=== PATIENT | male | born 1960 | race Caucasian/White ===

== ENCOUNTER → 2016-09-27 | Outpatient (CLI) | payer BC ==
[~2016-09-27] MED LIST: IBUP-103 PO; MECL1TAB42 PO
== END | disposition home or self-care (01) ==
LOC: C.RDSM 13:47
PROVIDERS: ATTEND Orthopaedic Surgery Sports Medicine
DX: R52 Pain, unspecified (principal)

== ENCOUNTER → 2016-11-15 | Outpatient (CLI) | payer BC | END | disposition home or self-care (01) | LOC: C.RDSM 14:20 | PROVIDERS: ATTEND Orthopaedic Surgery Sports Medicine | DX: M25.562 Pain in left knee (principal) ==

== ENCOUNTER 2017-01-18 11:49 | Emergency (ER) | payer BC ==
[~2017-01-18] VITALS: Ht 172.7 cm; Wt 80.7 kg
[~2017-01-18 11:49] MED LIST changes: -MECL1TAB42 PO
[2017-01-18 11:58] VITALS: TEMP 36.6; Ht 172.7 cm; Wt 80.7 kg
[2017-01-18] MEDS ORDERED: MECLIZINE HCL 25 MG TAB PO STA (13:29)
[2017-01-18] MEDS ORDERED: SODIUM CHLORIDE 0.9% 1000ML 1,000 ML IV STA (13:29)
--- NOTE | 2017-01-18 13:41 | EMERGENCY ROOM VISIT NOTE ---
History First contact with patient: 13:18 Chief Complaint: SHORTNESS OF BREATH Stated Complaint: SOB, DIZZY History of Present Illness The patient is a 56 year old male who presents to the Emergency Room with complaints of dizziness. The patient was at work this morning when he describes the sensation of dizziness and the room spinning. He tried sitting down, left work to go home, and tried hydrating but at no point did the symptoms resolve. The patient called his family doctor who recommended that the patient come to the Emergency Department. He states the he has also felt fatigued over the last 2 weeks and recently returned from a trip to [place]. The patient currently states that most of his symptoms have currently resolved, but also appreciates that his dizziness recurs when bending over. The patient also states that he was having some chest tightness with the episodes. The patient states that during the episode he was also short of breath but denies any headache, vision changes, recent rashes, or any other acute symptoms. Review of Systems See HPI for pertinent positives and negatives. A total of ten systems were reviewed and were otherwise negative. Past Medical/Surgical History Medical Problems: (1) Syncope Family History FH: heart disease FATHER Social History Smoking Status: Never Smoker Marital Status: Housing Status: lives with family Occupation Status: employed Current/Historical Medications Scheduled PRN Ibuprofen Tab (Advil), 400 MG PO for Pain Allergies Coded Allergies: No Known Allergies (Verified , 01/18/17) Physical Exam Vital Signs Date Time Temp Pulse Resp B/P (MAP) Pulse Ox O2 Delivery O2 Flow Rate FiO2 01/18/17 15:08 61 18 107/71 100 Room Air 01/18/17 13:40 77 108/70 82 118/79 85 104/75 01/18/17 12:00 98 Room Air 01/18/17 11:58 36.6 78 20 123/84 98 Room Air Physical Exam GENERAL: Awake, alert, well-appearing, in no distress HENT: Normocephalic, atraumatic. Oropharynx unremarkable. EYES: Normal conjunctiva. Sclera non-icteric. NECK: Supple. No nuchal rigidity. FROM. No JVD. RESPIRATORY: Clear to auscultation. CARDIAC: Regular rate, normal rhythm. Extremities warm and well perfused. Pulses equal. ABDOMEN: Soft, non-distended. No tenderness to palpation. RECTAL: Deferred. MUSCULOSKELETAL: Chest examination reveals no tenderness. The back is symmetrical on inspection without obvious abnormality. LOWER EXTREMITIES: Calves are equal size bilaterally and non-tender. No edema. No discoloration. NEURO: Normal sensorium. No sensory or motor deficits noted. CN 2-12 grossly intact. Strength 5/5 in upper extremities bilaterally. Heel to hernandez bilaterally intact. SKIN: No rash or jaundice noted. Medical Decision & Procedures Laboratory Results 01/18/17 14:12 Red Blood Count 4.98, Mean Corpuscular Volume 87.3, Mean Corpuscular Hemoglobin 31.9, Mean Corpuscular Hemoglobin Concent 36.6, Mean Platelet Volume 9.7, Neutrophils (%) (Auto) 67.3, Lymphocytes (%) (Auto) 20.7, Monocytes (%) (Auto) 9.8, Eosinophils (%) (Auto) 1.7, Basophils (%) (Auto) 0.2, Neutrophils # (Auto) 4.07, Lymphocytes # (Auto) 1.25, Monocytes # (Auto) 0.59, Eosinophils # (Auto) 0.10, Basophils # (Auto) 0.01 01/18/17 14:12 Test 01/18/17 14:12 White Blood Count 6.04 K/uL (4.8-10.8) Red Blood Count 4.98 M/uL (4.7-6.1) Hemoglobin 15.9 g/dL (14.0-18.0) Hematocrit 43.5 % (42-52) Mean Corpuscular Volume 87.3 fL (80-100) Mean Corpuscular Hemoglobin 31.9 pg (25-34) Mean Corpuscular Hemoglobin Concent 36.6 g/dl (32-36) Platelet Count 198 K/uL (130-400) Mean Platelet Volume 9.7 fL (7.4-10.4) Neutrophils (%) (Auto) 67.3 % Lymphocytes (%) (Auto) 20.7 % Monocytes (%) (Auto) 9.8 % Eosinophils (%) (Auto) 1.7 % Basophils (%) (Auto) 0.2 % Neutrophils # (Auto) 4.07 K/uL (1.4-6.5) Lymphocytes # (Auto) 1.25 K/uL (1.2-3.4) Monocytes # (Auto) 0.59 K/uL (0.11-0.59) Eosinophils # (Auto) 0.10 K/uL (0-0.5) Basophils # (Auto) 0.01 K/uL (0-0.2) RDW Standard Deviation 39.5 fL (36.4-46.3) RDW Coefficient of Variation 12.4 % (11.5-14.5) Immature Granulocyte % (Auto) 0.3 % Immature Granulocyte # (Auto) 0.02 K/uL (0.00-0.02) Anion Gap 5.0 mmol/L (3-11) Est Creatinine Clear Calc Drug Dose 74.3 ml/min Estimated GFR () 87.7 Estimated GFR (Non- 75.7 BUN/Creatinine Ratio 13.5 (10-20) Calcium Level 9.1 mg/dl (8.5-10.1) Troponin I < 0.015 ng/ml (0-0.045) Lyme Disease IgG Antibody NEG (NEG) Lyme Disease IgM Antibody NEG (NEG) Medications Administered Medications (Trade) Dose Ordered Sig/Maricruz Route Start Time Stop Time Status Last Admin Dose Admin Sodium Chloride 1,000 ml @ 999 mls/hr Q1H1M STAT IV 01/18/17 13:29 01/18/17 14:29 DC 01/18/17 14:18 999 MLS/HR Meclizine HCl (Antivert Tab) 25 mg NOW STAT PO 01/18/17 13:29 01/18/17 13:31 DC 01/18/17 14:19 25 MG Medical Decision Patient is a 56 year old female the presents with acute dizziness Etiologies such as benign positional vertigo, tumor, infection, hypoglycemia, electrolyte abnormalities, cardiac sources, intracerebral event, toxicologic, neurologic, as well as others were entertained. Labs: CBC, BMP, Troponin Orthostatic Vitals EKG, Chest X-ray Medications: Meclizine 25mg 1L NS Impression Primary Impression: Vaso vagal episode Patient is a 56 year old male that presents to the ED with dizziness - CBC, BMP, Troponin, EKG, Chest X-Ray all within normal limits - Patient symptoms appear to have resolved after arrival to the ED - Orthostatic vital do not appear to be significant - Symptoms and normal labs most likely signify vaso-vagal event - Patient to be discharged home Departure Information Dispostion Home / Self-Care Condition GOOD Prescriptions Meclizine Hcl (MECLIZINE HCL) 25 Mg Tab 1 TAB PO TID Y for Dizziness or Vertigo for 10 Days, #30 TAB Prov: Homer Ambrose MD 01/18/17 Referrals He Ji M.D.([facility]) (PCP) Patient Instructions My [facility] Additional Instructions DO NOT drive, drink alcohol, operate machinery, or perform dangerous activities today. You were given medications in the ER that can affect your ability to safely function or operate a vehicle. You should not drive or perform any dangerous activities until your symptoms resolve. Meclizine 25mg: Take 1 pill every 8 hours as needed for dizziness or vertigo. Avoid alcohol, operating machinery or dangerous equipment, working on ladders or roofs, DRIVING, or situations where being under the influence may be dangerous Rest and drink plenty of fluids as tolerated. Return to the ER immediately for worsening or persistent dizziness, vomiting, headache, fevers, chest pains, difficulty breathing, black or bloody stools, slurred speech, numbness, weakness, visual changes, worsening of your condition , or as needed. Follow up with your primary physician in 2-3 days for a recheck of your current condition.
--- NOTE | 2017-01-18 14:07 | EMERGENCY ROOM VISIT NOTE ---
History Report prepared by Lakhwinder: Alan Reed Under the Supervision of: Dr. Evangelist Laguna M.D. First contact with patient: 13:18 Chief Complaint: SHORTNESS OF BREATH Stated Complaint: SOB, DIZZY History of Present Illness The patient is a 56 year old male who presents to the Emergency Room with complaints of improving dizziness starting earlier today. The patient states that he was painting the interior of the house, so he sat down, and it did not go away. He states that he then went home, had water, and sat down, and it still did not go away. He called his PCP to come in for evaluation. He states that he is not currently dizzy unless he is bent over. He states that he was short of breath, though not anymore. The patient states that he has a history of panic attacks, and this situation felt similar. He states that he has a family history of heart disease with his father who had a quadruple bypass surgery and congestive heart failure. The patient states that he has had a stress test within the last five years and he passed. Additionally, the patient states that he has been fatigued recently, and he recently had a long drive. Source of History: patient Onset: earlier today Position: other (global) Quality: other (dizziness) Timing: other (improving) Modifying Factors (Worsening): other (bending over) Associated Symptoms: + SOB Review of Systems See HPI for pertinent positives & negatives. A total of 10 systems reviewed and were otherwise negative. Past Medical & Surgical Medical Problems: (1) Syncope Family History FH: heart disease FATHER Social History Smoking Status: Never Smoker Marital Status: Housing Status: lives with family Occupation Status: employed Current/Historical Medications Scheduled PRN Ibuprofen Tab (Advil), 400 MG PO for Pain Meclizine Hcl (Meclizine Hcl), 1 TAB PO TID PRN for Dizziness or Vertigo Allergies Coded Allergies: No Known Allergies (Verified , 01/18/17) Physical Exam Vital Signs Date Time Temp Pulse Resp B/P (MAP) Pulse Ox O2 Delivery O2 Flow Rate FiO2 01/18/17 15:08 61 18 107/71 100 Room Air 01/18/17 13:40 77 108/70 82 118/79 85 104/75 01/18/17 12:00 98 Room Air 01/18/17 11:58 36.6 78 20 123/84 98 Room Air Physical Exam GENERAL: Patient is a healthy-appearing well-nourished male HEAD: Normocephalic atraumatic EYES: Ocular movements intact pupils equal and react to light OROPHARYNX mucous membranes are moist no exudates present no erythema or edema present NECK: Supple no nuchal rigidity CHEST: Good equal expansion LUNGS: Clear and equal to auscultation CARDIAC: Normal S1 and S2 ABDOMEN: Soft nontender no guarding BACK: No CVA tenderness EXTREMITIES: No pain upon palpation normal muscle strength in all groups no clubbing cyanosis or edema NEURO: Patient is following commands and answering questions appropriately. Alert and oriented x3 Cranial Nerves 2-12 grossly intact Medical Decision & Procedures ER Provider Diagnostic Interpretation: X-ray results as stated below per interpretation by me and the radiologist: CHEST ONE VIEW PORTABLE CLINICAL HISTORY: Pt c/o sob dyspnea 11/19/2013 COMPARISON STUDY: No previous studies for comparison. FINDINGS: The bones soft tissues and hemidiaphragms are normal. The cardiomediastinal silhouette is normal. The lungs are clear. The pulmonary vasculature is normal. IMPRESSION: Negative chest. Electronically signed by: Ramiro Rios M.D. 01/18/2017 2:50 PM Dictated Date/Time: 01/18/2017 2:50 PM Laboratory Results 01/18/17 14:12 Red Blood Count 4.98, Mean Corpuscular Volume 87.3, Mean Corpuscular Hemoglobin 31.9, Mean Corpuscular Hemoglobin Concent 36.6, Mean Platelet Volume 9.7, Neutrophils (%) (Auto) 67.3, Lymphocytes (%) (Auto) 20.7, Monocytes (%) (Auto) 9.8, Eosinophils (%) (Auto) 1.7, Basophils (%) (Auto) 0.2, Neutrophils # (Auto) 4.07, Lymphocytes # (Auto) 1.25, Monocytes # (Auto) 0.59, Eosinophils # (Auto) 0.10, Basophils # (Auto) 0.01 01/18/17 14:12 Test 01/18/17 14:12 White Blood Count 6.04 K/uL (4.8-10.8) Red Blood Count 4.98 M/uL (4.7-6.1) Hemoglobin 15.9 g/dL (14.0-18.0) Hematocrit 43.5 % (42-52) Mean Corpuscular Volume 87.3 fL (80-100) Mean Corpuscular Hemoglobin 31.9 pg (25-34) Mean Corpuscular Hemoglobin Concent 36.6 g/dl (32-36) Platelet Count 198 K/uL (130-400) Mean Platelet Volume 9.7 fL (7.4-10.4) Neutrophils (%) (Auto) 67.3 % Lymphocytes (%) (Auto) 20.7 % Monocytes (%) (Auto) 9.8 % Eosinophils (%) (Auto) 1.7 % Basophils (%) (Auto) 0.2 % Neutrophils # (Auto) 4.07 K/uL (1.4-6.5) Lymphocytes # (Auto) 1.25 K/uL (1.2-3.4) Monocytes # (Auto) 0.59 K/uL (0.11-0.59) Eosinophils # (Auto) 0.10 K/uL (0-0.5) Basophils # (Auto) 0.01 K/uL (0-0.2) RDW Standard Deviation 39.5 fL (36.4-46.3) RDW Coefficient of Variation 12.4 % (11.5-14.5) Immature Granulocyte % (Auto) 0.3 % Immature Granulocyte # (Auto) 0.02 K/uL (0.00-0.02) Anion Gap 5.0 mmol/L (3-11) Est Creatinine Clear Calc Drug Dose 74.3 ml/min Estimated GFR () 87.7 Estimated GFR (Non- 75.7 BUN/Creatinine Ratio 13.5 (10-20) Calcium Level 9.1 mg/dl (8.5-10.1) Troponin I < 0.015 ng/ml (0-0.045) Lyme Disease IgG Antibody NEG (NEG) Lyme Disease IgM Antibody NEG (NEG) Labs reviewed by ED physician. Medications Administered Medications (Trade) Dose Ordered Sig/Maricruz Route Start Time Stop Time Status Last Admin Dose Admin Sodium Chloride 1,000 ml @ 999 mls/hr Q1H1M STAT IV 01/18/17 13:29 01/18/17 14:29 DC 01/18/17 14:18 999 MLS/HR Meclizine HCl (Antivert Tab) 25 mg NOW STAT PO 01/18/17 13:29 01/18/17 13:31 DC 7/13/17 14:19 25 MG ECG Indication: SOB/dyspnea Rate (beats per minute): 63 Rhythm: normal sinus Findings: no acute ischemic change, no ectopy ED Course 1318: Past medical records reviewed. The patient was evaluated in room B4. A complete history and physical examination was performed. 1329: Antivert Tab 25mg PO, Sodium Chloride 1000 ml @ 999 mls/hr 1540: Upon reexamination the patient is feeling well. I discussed results and treatment plan with the patient. He verbalizes agreement and understanding. The patient is ready for discharge. Medical Decision Differential diagnosis: Etiologies such as cardiac ischemia, aortic dissection, pulmonary embolism, pneumonia, pneumothorax, musculoskeletal, infections, pericarditis, myocarditis , esophageal rupture, gastrointestinal, as well as others were entertained. Blood Pressure Screening: Patient was found to have normal blood pressure on screening and does not require follow up. Medication Reconciliation: I attest that I have personally reviewed the patient' s current medication list This is a 56-year-old male who presents emergency department with an episode of vasovagal dizziness. Resident Physician Supervision Note: I interviewed and examined the patient. Discussed with Dr. Ambrose and agree with findings and plan as documented in the note. Documented By: Evangelist Laguna Impression Primary Impression: Vaso vagal episode Scribe Attestation The scribe's documentation has been prepared under my direction and personally reviewed by me in its entirety. I confirm that the note above accurately reflects all work, treatment, procedures, and medical decision making performed by me. Departure Information Dispostion Home / Self-Care Prescriptions Meclizine Hcl (MECLIZINE HCL) 25 Mg Tab 1 TAB PO TID Y for Dizziness or Vertigo for 10 Days, #30 TAB Prov: Homer Ambrose .MD 01/18/17 Referrals eH Ji M.D. ([facility]) (PCP) Forms HOME CARE DOCUMENTATION FORM, IMPORTANT VISIT INFORMATION Patient Instructions My [facility] Additional Instructions DO NOT drive, drink alcohol, operate machinery, or perform dangerous activities today. You were given medications in the ER that can affect your ability to safely function or operate a vehicle. You should not drive or perform any dangerous activities until your symptoms resolve. Meclizine 25mg: Take 1 pill every 8 hours as needed for dizziness or vertigo. Avoid alcohol, operating machinery or dangerous equipment, working on ladders or roofs, DRIVING, or situations where being under the influence may be dangerous Rest and drink plenty of fluids as tolerated. Return to the ER immediately for worsening or persistent dizziness, vomiting, headache, fevers, chest pains, difficulty breathing, black or bloody stools, slurred speech, numbness, weakness, visual changes, worsening of your condition , or as needed. Follow up with your primary physician in 2-3 days for a recheck of your current condition.
[2017-01-18 14:27] LABS: BASO % 0.2 %; BASO ABS # 0.01 K/uL (0-0.2); COMPLETE YES; EOS % 1.7 %; HEMATOCRIT 43.5 % (42-52); IG% 0.3 %; LYMPH % 20.7 %; LYMPH ABS # 1.25 K/uL (1.2-3.4); MEAN CELL VOLUME 87.3 fL (80-100); MEAN CORPUSCULAR HEMOGLOBIN 31.9 pg (25-34); MEAN CORPUSCULAR HGB CONC 36.6 g/dl (32-36); MEAN PLATELET VOLUME 9.7 fL (7.4-10.4); MONO % 9.8 %; NEUT % 67.3 %; PLATELET COUNT 198 K/uL (130-400); RED BLOOD COUNT 4.98 M/uL (4.7-6.1); WHITE BLOOD COUNT 6.04 K/uL (4.8-10.8)
[2017-01-18 14:43] LABS: BLOOD UREA NITROGEN 15 mg/dl (7-18); BUN/CREATININE RATIO 13.5 (10-20); CALCIUM 9.1 mg/dl (8.5-10.1); CARBON DIOXIDE 30 mmol/L (21-32); CHLORIDE 104 mmol/L (98-107); GLUCOSE 91 mg/dl (70-99); POTASSIUM 3.7 mmol/L (3.5-5.1); SODIUM 139 mmol/L (136-145)
--- NOTE | 2017-01-18 14:52 | DIAGNOSTIC IMAGING REPORT ---
CHEST ONE VIEW PORTABLE CLINICAL HISTORY: Pt c/o sob dyspnea 11/19/2013 COMPARISON STUDY: No previous studies for comparison. FINDINGS: The bones soft tissues and hemidiaphragms are normal. The cardiomediastinal silhouette is normal. The lungs are clear. The pulmonary vasculature is normal. IMPRESSION: Negative chest. Electronically signed by: Ramiro Rios M.D. 01/18/2017 2:50 PM Dictated Date/Time: 01/18/2017 2:50 PM
[2017-01-18 15:08] VITALS: BP 107/71; PULSE 61; O2SAT 100
[2017-01-18 15:23] LABS: LYME DISEASE AB IGG NEG (NEG)
[2017-01-18 15:27] LABS: LYME DISEASE AB IGM NEG (NEG)
[2017-01-18] MEDS ORDERED: MECL1TAB42 PO (15:49)
== END 2017-01-18 15:57 | disposition home or self-care (01) ==
LOC: C.EDB 11:52
DX: R55 Syncope and collapse (principal); Z82.49 Family history of ischemic heart disease and other diseases of the circulatory system